=== PATIENT | male | born 1960 | race Caucasian/White ===

== ENCOUNTER 2020-03-16 17:22 | Inpatient (IN) | payer OTHER ==
--- NOTE | 2020-03-16 18:23 | RAD ---
EXAM DESCRIPTION: Chest,1 View CLINICAL HISTORY: covid COMPARISON: None. FINDINGS: There are bilateral poorly defined consolidations. Cardiac silhouette is within normal limits. No pneumothorax. Lung volumes are low. IMPRESSION: Poorly defined consolidations can be seen in viral inflammation. Electronically signed by: Ever Laird 03/16/2020 6:21 PM [facility]
[2020-03-16] MEDS ORDERED: AZITHROMYCIN IV 500 MG in SODIUM CHLORIDE 0.9% 250ML 250 ML IVPB ONE (18:44)
[2020-03-16] MEDS ORDERED: DEXAMETHASONE INJ 4 MG/ML VIAL IV ONE (18:44)
[2020-03-16] MEDS ORDERED: cefTRIAXone SODIUM 1 GM in SODIUM CHL 0.9% 50ML MIN-BAG+ 50 ML IVPB ONE (18:44)
[2020-03-16] MEDS ORDERED: REMDESIVIR 200 MG in SODIUM CHLORIDE 0.9% 250ML 250 ML IVPB ONE (18:44)
--- NOTE | 2020-03-16 19:08 | ED.PDOC ---
History of Present Illness - General Chief Complaint: Respiratory Problem Stated Complaint: weakness, difficulty breathing Time Seen by Provider: 03/16/20 17:28 Source: patient Exam Limitations: no limitations - History of Present Illness Initial Comments: The patient is a 60-year-old male presented emergency room secondary to progressive shortness of breath, diaphoresis and generalized weakness over the last 10 days. He was diagnosed with coronavirus around that time and has undergone 2 rounds of oral azithromycin and 2 rounds of oral steroids. The patient is not in respiratory distress but oxygen saturations hovered between 88 and 92% at rest on room air and brought down to the mid to low 80s with any exertion. He does get significantly short of breath with activity. He reports that he does have a mildly productive cough. No syncope. Questionable near syncope. He is a type II diabetic. Timing/Duration: other - 10 days Severity: moderate Improving Factors: nothing Worsening Factors: nothing Associated Symptoms: cough, diaphoresis, fever/chills, loss of appetite, malaise, shortness of breath Allergies/Adverse Reactions: Allergies NO KNOWN ALLERGY Allergy (Verified 03/16/20 17:59) Home Medications: Ambulatory Orders Empagliflozin-Metformin HCl [Synjardy Xr 25-1000 mg] 1 tablet PO DAILYBK 03/16/20 Lisinopril 20 mg PO DAILY 03/16/20 Review of Systems - Review of Systems Constitutional: States: malaise EENTM: States: no symptoms reported Respiratory: States: cough, short of breath Cardiology: States: no symptoms reported Gastrointestinal/Abdominal: States: no symptoms reported Genitourinary: States: no symptoms reported Musculoskeletal: States: no symptoms reported Skin: States: no symptoms reported Neurological: States: no symptoms reported Endocrine: States: no symptoms reported Hematologic/Lymphatic: States: no symptoms reported All other Systems: No Change from Baseline Past Medical History (General) - Patient Medical History Hx Seizures: No Hx Stroke: No Hx Dementia: No Hx of COPD: No Hx Cardiac Disorders: No Hx Congestive Heart Failure: No Hx Hypertension: Yes Hx Thyroid Disease: No Hx Diabetes: Yes Hx Renal Disease: No Surgical History: other - Social History Hx Tobacco Use: No Family Medical History - Family History Mother Family History: Unknown Physical Exam - Physical Exam General Appearance: Alert, Comfortable, No apparent distress Eye Exam: bilateral normal Ears, Nose, Throat: hearing grossly normal, normal pharynx Neck: non-tender, supple Respiratory: accessory muscle use - Primarily with exertion or just walking, rhonchi Cardiovascular/Chest: normal peripheral pulses, regular rate, rhythm, no edema Peripheral Pulses: radial,right: 2+, radial,left: 2+ Gastrointestinal/Abdominal: non tender, soft Rectal Exam: deferred Back Exam: no CVA tenderness, no vertebral tenderness Extremity: non-tender, normal inspection, no pedal edema, normal capillary refill Neurologic: flour blender II-XII nml as tested, alert, normal mood/affect, oriented x 3 Skin Exam: normal color Comments: Vital Signs - 24 hr 03/16/20 03/16/20 03/16/20 17:28 18:20 18:34 Temperature 96.5 F L 96.9 F L Pulse Rate [ 84 78 79 left brachial] Respiratory 18 20 20 Rate Blood Pressure 114/77 100/66 109/78 [left brachial] O2 Sat by Pulse 93 L 89 L 94 L Oximetry 03/16/20 19:08 Temperature Pulse Rate [ 78 left brachial] Respiratory 20 Rate Blood Pressure 111/85 [left brachial] O2 Sat by Pulse 94 L Oximetry Pulse oximetry ranges from 88 to 93% on room air at rest. Oxygen saturations do drop down below 85% with any exertion. Progress - Progress Progress: 03/16/20 19:10 The patient is a 60-year-old male that is a type II diabetic presenting with worsening symptoms of shortness of breath related to rhinovirus infection. The patient is being started on Rocephin, azithromycin, remdesivir, oxygen, and dexamethasone. He will be admitted for further care as he does dipesh ear to be deteriorating. The patient has failed outpatient treatment with a azithromycin and oral steroid. Admit for continued care. - Results/Orders Results/Orders: 03/16/20 17:28 Telemetry .CONTINUOUS 03/16/20 17:30 EKG STAT 03/16/20 17:50 BLOOD CULTURE Stat 03/16/20 18:44 Azithromycin IV [Zithromax IV] 500 mg Sodium Chloride 0.9% 250Ml [NS 250ml] 250 ml IVPB ONCE Remdesivir 200 mg Sodium Chloride 0.9% 250Ml [NS 250ml] 250 ml IVPB ONCE cefTRIAXone SODIUM [Rocephin] 1 gm Sodium Chl 0.9% 50Ml Min-Bag+ [NS 50ml MINI-BAG+] 50 ml IVPB ONCE Laboratory Results - last 24 hr 03/16/20 03/16/20 03/16/20 17:50 17:50 17:50 WBC 5.0 RBC 5.08 Hgb 17.1 Hct 48.6 MCV 95.8 H MCH 33.6 H MCHC 35.1 RDW 13.4 Plt Count 107 L MPV 10.3 Absolute Neuts (auto) 4.20 Absolute Lymphs (auto) 0.40 L Absolute Monos (auto) 0.40 Absolute Eos (auto) 0.00 Absolute Basos (auto) 0.00 Neutrophils % 84.1 H Lymphocytes % 7.1 L Monocytes % 8.4 Eosinophils % 0.0 L Basophils % 0.4 PT INR PTT (SP) Fibrinogen D-Dimer, Quantitative Sodium 137 Potassium 4.1 Chloride 101 Carbon Dioxide 25 Anion Gap 15.1 BUN 20 H Creatinine 1.07 BUN/Creatinine Ratio 18.7 Random Glucose 178 H Serum Osmolality 280.9 Lactic Acid 1.3 Calcium 8.4 Magnesium 2.1 Ferritin Total Bilirubin 1.1 H AST 47 H ALT 37 Alkaline Phosphatase 45 LD Total Creatine Kinase 295 H* CK-MB (CK-2) 0.8 CK-MB (CK-2) % Not Reportable Troponin I < 0.02 C-Reactive Protein B-Natriuretic Peptide < 15.0 Serum Total Protein 7.4 Albumin 3.8 Globulin 3.6 H Albumin/Globulin Ratio 1.1 Amylase 99 Lipase 72 H 03/16/20 03/16/20 03/16/20 17:50 17:50 17:50 WBC RBC Hgb Hct MCV MCH MCHC RDW Plt Count MPV Absolute Neuts (auto) Absolute Lymphs (auto) Absolute Monos (auto) Absolute Eos (auto) Absolute Basos (auto) Neutrophils % Lymphocytes % Monocytes % Eosinophils % Basophils % PT 10.3 INR 1.04 PTT (SP) 27.7 Fibrinogen 477 H D-Dimer, Quantitative < 131.0 L Sodium Potassium Chloride Carbon Dioxide Anion Gap BUN Creatinine BUN/Creatinine Ratio Random Glucose Serum Osmolality Lactic Acid Calcium Magnesium Ferritin 912.6 H Total Bilirubin AST ALT Alkaline Phosphatase LD Total 284 H Creatine Kinase CK-MB (CK-2) CK-MB (CK-2) % Troponin I C-Reactive Protein 1.9 H B-Natriuretic Peptide Serum Total Protein Albumin Globulin Albumin/Globulin Ratio Amylase Lipase Chest x-ray shows mild scattered infiltrates. Borderline cardiomegaly. EKG shows normal sinus rhythm at 86 bpm. Normal R wave progression. Normal axis. No ST segment or T wave changes indicative of acute ischemia. Normal QT interval. Departure - Departure Clinical Impression: Pneumonia due to 2019 novel coronavirus Departure Forms: ED Discharge - Pt. Copy, Patient Portal Self Enrollment Home Medications: Ambulatory Orders Empagliflozin-Metformin HCl [Synjardy Xr 25-1000 mg] 1 tablet PO DAILYBK 03/16/20 Lisinopril 20 mg PO DAILY 03/16/20 Decision To Admit - Decistion To Admit Decision to Admit Reason: Medical Nature Decision to Admit Date: 03/16/20 Decision to Admit Time: 19:11
--- NOTE | 2020-03-16 20:49 | HP ---
SUPERVISING PHYSICIAN: Alexander Arambula MD CHIEF COMPLAINT: Weakness, difficulty breathing. HISTORY OF PRESENT ILLNESS: Mr. Mullen is a 60 year-old male patient who presented to the Emergency Room last night complaining of worsening shortness of breath an diaphoresis and generalized weakness over the last 10 days. He was diagnosed with coronavirus last Thursday and has had 2 rounds of azithromycin as well as oral steroids. He lives in [place] but has a [facility] [place] at and was at to isolate from his family but while in isolation has developed some shortness of breath. On initial presentation to the Emergency Room, his oxygen saturations were 88% on room air and brought down even further with exertion. Laboratory studies showed he had a white count of 5,000 with a left shift. His chemistries showed normal electrolytes with creatinine of 1.07. Initial C-reactive protein was 1.9, troponin less than 0.02. Lipase was slightly elevated at 32. He had a normal D-dimer. Chest x-ray per radiology interpretation shows poorly defined consolidations bilaterally. The patient is going to be admitted for Covid pneumonitis with desaturations and hypoxia on room air for further evaluation and treatment. PAST MEDICAL HISTORY: 1. Diabetes mellitus type 2 on oral therapy. 2. Hypertension. PAST SURGICAL HISTORY: Hernia repair in 1999 CURRENT MEDICATIONS: 1. Tessalon Perles 200 mg t.i.d. 2. Methylprednisolone 4 mg daily. 3. Finasteride 5 mg daily. 4. Synjardy 1 tablet daily. 5. Azithromycin 500 mg daily. 6. Tamsulosin 0.4 mg daily. 7. Lisinopril. ALLERGIES: No known drug allergies. FAMILY HISTORY: Father at age 75 due to esophageal and lymphoma cancer, he had diabetes as well. His mother is 83 and currently healthy. He has 2 siblings, sister and brother who are healthy. 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 He is . He doesn't have a history of smoking or utilizing any illicit drugs or alcohol. REVIEW OF SYSTEMS: CONSTITUTIONAL: Positive for general malaise, denies fevers, chills. HEENT: Denies headaches. vision changes, sore throat. nasal congestion, earaches. CHEST: As noted in history of present illness, a cough and shortness of breath. HEART: Denies chest pain, palpitations, tachycardia or syncopal episodes. ABDOMEN: Denies nausea, vomiting, diarrhea or constipation, abdominal pain. GENITOURINARY: Denies dysuria, hematuria or polyuria. MUSCULOSKELETAL: Denies arthralgias, joint swelling. SKIN: Denies lesions, rashes, moles or unexplained changes. NEUROLOGIC: Denies ataxia, seizures, weakness, paresthesias. HEMATOLOGICAL: Denies unexplained bleeding, easy bruising or transfusion reactions. PHYSICAL EXAMINATION: VITAL SIGNS: Initially in the Emergency Room showed temperature 96.5, pulse 84, blood pressure 114/77, respirations 18, oxygen saturation 89% on room air at rest, going up to 94% on nasal cannula at 2 liters. GENERAL: The patient looks to be resting comfortably, in no acute distress. He is alert. HEENT: Tympanic membranes clear bilaterally. Oropharynx pink and moist without any lesions. NECK: Supple, non-tender, full range of motion, no jugular venous distention. CHEST: Lung sounds were fairly clear, just diminished toward the bases with no obvious rhonchi, rales, or wheezes. CARDIOVASCULAR: Regular rate and rhythm without appreciable murmurs, rubs, or gallops. ABDOMEN: Soft, non-tender positive bowel sounds. EXTREMITIES: No cyanosis, clubbing, or edema. BACK: Without CVA or vertebral tenderness. NEUROLOGIC: Cranial nerves II through XII are grossly intact. Extraocular movements were within normal limits. He was alert and oriented x 3. SKIN: Warm, pink and dry. RECTAL: Deferred. LABORATORY: White count 5,000, hemoglobin 17.1, hematocrit 48.6, platelet count 107,000, differential shows a left shift. Coagulation studies showed normal D- dimer, normal PT/PTT. Fibrinogen slightly elevated at 477. Chemistries showed normal electrolytes with creatinine 1.07, normal magnesium, normal calcium. Lactic acid normal at 1.3. Ferritin elevated at 912, bilirubin slightly elevated at 1.1, AST 47, ALT normal. CK 295, troponin less than 0.02. BNP less than 15. C-reactive protein 1.9, lipase 72. MICROBIOLOGY: Blood cultures were collected and pending. RADIOLOGY: Chest x-ray shows bilateral consolidations. ASSESSMENT: 1. Covid pneumonitis with hypoxia. 2. Diabetes mellitus type 2. 3. Hypertension. PLAN: Mr. Jacob is going to be admitted for treatment of Covid pneumonitis given his room air hypoxic. Will start him on Remdesivir, Decadron, Rocephin, azithromycin, Align and Protonix and Lovenox. Will have aggressive pulmonary hygiene with albuterol treatments if needed by handheld inhaler. He will be on insulin sliding scale per protocol. I would anticipate his length of stay to be 2 or 3 days. Hopefully, will be able to discharge by Thursday. Until then, we will continue to monitor and treat as needed. [facility][id number] [facility]
[2020-03-16] MEDS ORDERED: GLUCAGON INJ 1 MG VIAL SUBCU PRN (21:49)
[2020-03-16] MEDS ORDERED: DEXTROSE 50% 25 GM/50 ML SYG IV PRN (21:49)
[2020-03-16] MEDS ORDERED: ACETAMINOPHEN 325 MG TAB PO PRN (21:49)
[2020-03-16] MEDS ORDERED: SODIUM CHLORIDE 0.9% (FLUSH) 10 ML SYG IV PRN (21:49)
[2020-03-16] MEDS ORDERED: ONDANSETRON INJ 4 MG/2 ML VIAL IV PRN (21:49)
[2020-03-16] MEDS ORDERED: MAGNESIUM HYDROXIDE 30 ML UD PO PRN (21:49)
[2020-03-16] MEDS ORDERED: PROMETHAZINE W/CODEINE SYR 5 ML UD PO PRN (21:57)
[2020-03-16] MEDS ORDERED: IV SET AND CAP CHANGE INJ INJ SCH (22:00)
[2020-03-16] MEDS ORDERED: BENZONATATE PERLES 100 MG CAP ONE (22:37)
[2020-03-16] MEDS: BENZONATATE 200 MG PO SCH (22:38)
[2020-03-16] MEDS: TEMAZEPAM 15 MG CAP PO PRN (22:56)
[2020-03-17] MEDS: PANTOPRAZOLE SODIUM IV 40 MG VIAL IV SCH (06:15)
[2020-03-17] MEDS: INSULIN LISPRO 100 UNITS/ML PEN SUBCU SCH ×4 (08:12→20:56)
[2020-03-17] MEDS ORDERED: BENZONATATE PERLES 100 MG CAP ONE ×3 (08:49→18:50)
[2020-03-17] MEDS ORDERED: LISINOPRIL 10 MG TAB ONE (08:50)
[2020-03-17] MEDS ORDERED: SODIUM CHLORIDE 0.9% 250ML 250 ML ONE ×2 (08:50→11:34)
[2020-03-17] MEDS ORDERED: cefTRIAXone SODIUM 1 GM VIAL ONE (08:50)
[2020-03-17] MEDS ORDERED: AZITHROMYCIN IV 500 MG VIAL IVPB ONE (08:50)
[2020-03-17] MEDS ORDERED: SODIUM CHL 0.9% 50ML MIN-BAG+ 50 ML IVPB ONE (08:50)
[2020-03-17] MEDS: NON-FORMULARY MEDICATION 1 EA MIS (Lisinopril [Lisinopril] 20 MG) PO SCH (09:12)
[2020-03-17] MEDS: BIFIDOBACTERIUM INFANTIS 4 MG CAP PO SCH (09:12)
[2020-03-17] MEDS: DEXAMETHASONE INJ 10 MG/ML VIAL IV SCH (09:12)
[2020-03-17] MEDS: FINASTERIDE 5 MG TAB PO SCH (09:12)
[2020-03-17] MEDS: BENZONATATE 200 MG PO SCH ×3 (09:12→20:48)
[2020-03-17] MEDS: guaiFENesin ER TAB 600 MG TAB PO SCH ×2 (09:12→20:48)
[2020-03-17] MEDS: cefTRIAXone SODIUM 1 GM in SODIUM CHL 0.9% 50ML MIN-BAG+ 50 ML IVPB SCH (09:13)
[2020-03-17] MEDS: AZITHROMYCIN IV 500 MG in SODIUM CHLORIDE 0.9% 250ML 250 ML IVPB SCH (09:13)
[2020-03-17] MEDS: TAMSULOSIN 0.4 MG CAP PO SCH (09:13)
--- NOTE | 2020-03-17 09:13 | RAD ---
: 1960. Technique: Portable AP upright chest x-ray. Comparison: March 16, 2020. Clinical history: COVID PNA. Heart size: Heart size is moderately enlarged. There is mild vascular congestion. Lungs: Patchy linear densities in the mid and lower lung kwong. Consistent with atelectasis or interstitial pneumonia. No new airspace consolidation otherwise. Shallow inspiration. Pleura: No pleural effusion. No pneumothorax. Mediastinum and mirlande: Unremarkable. Skeletal: Unremarkable. Support tubings: None. Impression: 1. Mild interstitial pneumonia-atelectasis. 2. Cardiomegaly and mild vascular congestion Electronically signed by: Abhilash Meyers MD 03/17/2020 9:11 AM [employer]
[2020-03-17] MEDS: ALBUTEROL INHALER 64 PUFF/8GM INH SCH ×5 (09:30→20:50)
[2020-03-17] MEDS ORDERED: REMDESIVIR IV 100 MG VIAL ONE (11:34)
[2020-03-17] MEDS: REMDESIVIR 100 MG in SODIUM CHLORIDE 0.9% 250ML 250 ML IVPB SCH (12:04)
--- NOTE | 2020-03-17 14:41 | PN ---
SUPERVISING PHYSICIAN: Alexander Arambula MD DATE: 03/17/20 SUBJECTIVE: The patient is feeling a little bit better today. Oxygen saturations are showing 95% at rest on 3 liter nasal cannula. He has had no nausea or vomiting or any chest pain. OBJECTIVE: VITAL SIGNS: Temperature 98, pulse 69, blood pressure 118/79, respirations 18, oxygen saturation 95% on 3 liter nasal cannula. GENERAL: The patient appears to be resting comfortably and in no acute distress. CHEST: Clear to auscultation, a little diminished toward the bases. HEART: Regular rate and rhythm. ABDOMEN: Soft, non-tender, positive bowel sounds. EXTREMITIES: Without edema. NEUROLOGIC: He is alert and oriented x 3. LABORATORY: White count 4,300 with hemoglobin 16.6, hematocrit 47.9. RBC indices do show a microcytosis. Platelet count at 101,000, differential shows reduced leukocyte count but no left shift obvious today. D-dimer is still less than 131. Chemistries show normal electrolytes. Creatinine 1.09. Blood sugars range between 111 and 178. Calcium 8.2, magnesium 2.5, Liver functions now showing to be within normal limits. LDH is down to 226, C-reactive protein up a little bit to 2.6. MICROBIOLOGY: Blood cultures remain negative. RADIOLOGY: Repeat chest x-ray this morning per radiology interpretation shows mild interstitial pneumonia, atelectasis, cardiomegaly and mild vascular congestion. ASSESSMENT: 1. Covid pneumonitis with hypoxia. 2. Diabetes mellitus type 2. 3. Hypertension. PLAN: Will continue with current plan of care with Remdesivir, azithromycin, Rocephin, Decadron, Protonix, Align. Will work to get him on room air and anticipate hopefully he will discharge Until we can transition patient to outpatient management tomorrow or Thursday, we will continue to monitor and treat as needed. #[id number] [facility]
[2020-03-17] MEDS ORDERED: PROMETHAZINE W/CODEINE SYR 5 ML UD PO ONE (19:19)
[2020-03-17] MEDS ORDERED: TEMAZEPAM 15 MG CAP ONE (19:56)
[2020-03-17] MEDS: TEMAZEPAM 15 MG CAP PO PRN (20:48)
[2020-03-17] MEDS: ENOXAPARIN SODIUM 40 MG/0.4 ML SYG SUBCU SCH (20:49)
[2020-03-17] MEDS ORDERED: ALBUTEROL INHALER 64 PUFF/8GM INH PRN (21:54)
[2020-03-18] MEDS ORDERED: PANTOPRAZOLE SODIUM IV 40 MG VIAL ONE ×2 (04:39→19:08)
[2020-03-18] MEDS: PANTOPRAZOLE SODIUM IV 40 MG VIAL IV SCH (06:06)
[2020-03-18] MEDS ORDERED: DEXAMETHASONE INJ 10 MG/ML VIAL ONE (09:19)
[2020-03-18] MEDS ORDERED: FINASTERIDE 5 MG TAB ONE (09:19)
[2020-03-18] MEDS ORDERED: BIFIDOBACTERIUM INFANTIS 4 MG CAP ONE (09:19)
[2020-03-18] MEDS ORDERED: BENZONATATE PERLES 100 MG CAP ONE ×2 (09:19→19:07)
[2020-03-18] MEDS ORDERED: guaiFENesin ER TAB 600 MG TAB ONE ×2 (09:19→19:08)
[2020-03-18] MEDS ORDERED: cefTRIAXone SODIUM 1 GM VIAL ONE (09:20)
[2020-03-18] MEDS ORDERED: LISINOPRIL 10 MG TAB ONE (09:20)
[2020-03-18] MEDS ORDERED: TAMSULOSIN 0.4 MG CAP ONE (09:20)
[2020-03-18] MEDS ORDERED: AZITHROMYCIN IV 500 MG VIAL IVPB ONE (09:20)
[2020-03-18] MEDS ORDERED: REMDESIVIR IV 100 MG VIAL ONE (09:20)
[2020-03-18] MEDS ORDERED: SODIUM CHLORIDE 0.9% 250ML 250 ML ONE (09:20)
[2020-03-18] MEDS ORDERED: SODIUM CHL 0.9% 50ML MIN-BAG+ 50 ML IVPB ONE (09:21)
[2020-03-18] MEDS: BIFIDOBACTERIUM INFANTIS 4 MG CAP PO SCH (10:14)
[2020-03-18] MEDS: BENZONATATE 200 MG PO SCH ×3 (10:20→20:07)
[2020-03-18] MEDS: guaiFENesin ER TAB 600 MG TAB PO SCH ×2 (10:20→20:08)
[2020-03-18] MEDS: INSULIN LISPRO 100 UNITS/ML PEN SUBCU SCH ×4 (10:20→20:26)
[2020-03-18] MEDS: TAMSULOSIN 0.4 MG CAP PO SCH (10:20)
[2020-03-18] MEDS: NON-FORMULARY MEDICATION 1 EA MIS (Lisinopril [Lisinopril] 20 MG) PO SCH (10:20)
[2020-03-18] MEDS: DEXAMETHASONE INJ 10 MG/ML VIAL IV SCH (10:20)
[2020-03-18] MEDS: FINASTERIDE 5 MG TAB PO SCH (10:20)
[2020-03-18] MEDS: cefTRIAXone SODIUM 1 GM in SODIUM CHL 0.9% 50ML MIN-BAG+ 50 ML IVPB SCH (10:21)
[2020-03-18] MEDS: AZITHROMYCIN IV 500 MG in SODIUM CHLORIDE 0.9% 250ML 250 ML IVPB SCH (10:21)
[2020-03-18] MEDS: REMDESIVIR 100 MG in SODIUM CHLORIDE 0.9% 250ML 250 ML IVPB SCH (12:38)
[2020-03-18] MEDS: ALBUTEROL INHALER 64 PUFF/8GM INH SCH ×3 (13:15→18:00)
--- NOTE | 2020-03-18 13:36 | PN ---
SUPERVISING PHYSICIAN: Alexander Arambula MD DATE: 03/18/20 SUBJECTIVE: The patient is still requiring oxygen. He desats pretty quickly on room air. He is not showing any distress, he's not had any chest pain but goes down into the low 80s with any ambulation with any effort off any kind of supplementation. OBJECTIVE: VITAL SIGNS: Temperature 97.6, pulse 69, blood pressure 120/72, respirations 18, oxygen saturation 93% on 5 liter nasal cannula. GENERAL: The patient appears to be resting comfortably and in no acute distress. He is alert and oriented x3. CHEST: Fairly clear, just diminished toward the bases. HEART: Regular rate and rhythm. ABDOMEN: Soft, non-tender, positive bowel sounds. EXTREMITIES: Without edema. NEUROLOGIC: He is alert and oriented x 3. LABORATORY: White count 6,400 with hemoglobin 15.5, hematocrit 44.5. Platelet count 105,000, differential shows to be without a left shift. D-dimer is less than 131. Chemistries show normal electrolytes. Creatinine 0.99. Liver functions within normal limits. Magnesium normal, calcium 8.3. C-reactive protein down to 1.3 from 2.6. MICROBIOLOGY: Blood cultures remain negative at 24 hours. RADIOLOGY: No repeat chest x-ray today. . ASSESSMENT: 1. Covid pneumonitis with hypoxia. 2. Diabetes mellitus type 2. 3. Hypertension. PLAN: Will continue with current plan of care at this point with Remdesivir, azithromycin, Rocephin, Decadron, Protonix, Align. I was hoping to discharge him today but again, he is desatting initially on room air with ambulation. I do anticipate if we get him oxygen tomorrow he can discharge. He does live in [place] and is planning on going home to [place] tomorrow but I am not sure he is safe enough to discharge without any supplemental Oxycodone. Until then, we will continue to monitor and treat as needed.. #[id number] [facility]
[2020-03-18] MEDS ORDERED: INSULIN, REG.(HUMAN) 100 U/ML VIAL ONE (17:30)
[2020-03-18] MEDS ORDERED: TEMAZEPAM 15 MG CAP ONE (19:08)
[2020-03-18] MEDS ORDERED: ENOXAPARIN SODIUM 40 MG/0.4 ML SYG SUBCU ONE (19:08)
[2020-03-18] MEDS: TEMAZEPAM 15 MG CAP PO PRN (20:07)
[2020-03-18] MEDS: ENOXAPARIN SODIUM 40 MG/0.4 ML SYG SUBCU SCH (20:08)
[2020-03-19] MEDS: PANTOPRAZOLE SODIUM IV 40 MG VIAL IV SCH (06:31)
--- NOTE | 2020-03-19 07:11 | RAD ---
EXAM: Chest,1 View HISTORY: COVID PNA COMPARISON: Chest 1 View AP 03/17/2020 TECHNIQUE: Chest 1 View AP FINDINGS: Patient's neck partially appears bilateral medial apices. Moderate decreased inspiration (decreased lung volumes) makes evaluation more difficult and may accentuate heart size and pulmonary vascularity. Cardiac silhouette stable. No significant change in moderate hazy and interstitial bilateral lung opacities. Minimal left pleural effusion not ruled out. No pneumothorax. IMPRESSION: No significant change in moderate hazy and interstitial bilateral lung opacities. Electronically signed by: Sarbjit Weiss MD 03/19/2020 7:09 AM [facility]
[2020-03-19] MEDS: ALBUTEROL INHALER 64 PUFF/8GM INH SCH ×2 (08:11→13:07)
[2020-03-19] MEDS ORDERED: BIFIDOBACTERIUM INFANTIS 4 MG CAP ONE (08:18)
[2020-03-19] MEDS ORDERED: guaiFENesin ER TAB 600 MG TAB ONE (08:18)
[2020-03-19] MEDS ORDERED: DEXAMETHASONE INJ 10 MG/ML VIAL ONE (08:18)
[2020-03-19] MEDS ORDERED: BENZONATATE PERLES 100 MG CAP ONE (08:18)
[2020-03-19] MEDS ORDERED: FINASTERIDE 5 MG TAB ONE (08:18)
[2020-03-19] MEDS ORDERED: cefTRIAXone SODIUM 1 GM VIAL ONE (08:19)
[2020-03-19] MEDS ORDERED: LISINOPRIL 10 MG TAB ONE (08:19)
[2020-03-19] MEDS ORDERED: SODIUM CHL 0.9% 50ML MIN-BAG+ 50 ML IVPB ONE (08:19)
[2020-03-19] MEDS ORDERED: REMDESIVIR IV 100 MG VIAL ONE (08:19)
[2020-03-19] MEDS ORDERED: SODIUM CHLORIDE 0.9% 250ML 250 ML ONE ×2 (08:19→08:32)
[2020-03-19] MEDS ORDERED: AZITHROMYCIN IV 500 MG VIAL IVPB ONE (08:32)
[2020-03-19] MEDS ORDERED: TAMSULOSIN 0.4 MG CAP ONE (08:32)
[2020-03-19] MEDS ORDERED: LISINOPRIL 10 MG TAB PO SCH (09:00)
[2020-03-19] MEDS ORDERED: BENZONATATE PERLES 100 MG CAP PO SCH (09:00)
[2020-03-19] MEDS: INSULIN LISPRO 100 UNITS/ML PEN SUBCU SCH ×2 (09:50→14:11)
[2020-03-19] MEDS: FINASTERIDE 5 MG TAB PO SCH (10:11)
[2020-03-19] MEDS: TAMSULOSIN 0.4 MG CAP PO SCH (10:11)
[2020-03-19] MEDS: BIFIDOBACTERIUM INFANTIS 4 MG CAP PO SCH (10:11)
[2020-03-19] MEDS: guaiFENesin ER TAB 600 MG TAB PO SCH (10:11)
[2020-03-19] MEDS: cefTRIAXone SODIUM 1 GM in SODIUM CHL 0.9% 50ML MIN-BAG+ 50 ML IVPB SCH (10:12)
[2020-03-19] MEDS: AZITHROMYCIN IV 500 MG in SODIUM CHLORIDE 0.9% 250ML 250 ML IVPB SCH (10:12)
[2020-03-19] MEDS: DEXAMETHASONE INJ 10 MG/ML VIAL IV SCH (10:12)
[2020-03-19] MEDS ORDERED: REMDESIVIR 100 MG in SODIUM CHLORIDE 0.9% 250ML 250 ML IVPB SCH (12:00)
[2020-03-19 14:02] VITALS: BP 116/74; TEMP 97.8; O2SAT 94
[2020-03-20] MEDS ORDERED: PANTOPRAZOLE SODIUM TAB 40 MG PO SCH (06:30)
--- NOTE | 2020-04-02 09:57 | DS ---
SUPERVISING PHYSICIAN: Jan Huston MD ADMISSION DIAGNOSIS: 1. COVID pneumonitis with hypoxia. 2. Diabetes mellitus, type 2. 3. Hypertension. DISCHARGE DIAGNOSIS: 1. COVID pneumonitis with hypoxia. 2. Diabetes mellitus, type 2. 3. Hypertension. REASON FOR HOSPITALIZATION: Mr. Jacob is a 60 year-old male patient who presented to the Emergency Room last night complaining of worsening shortness of breath an diaphoresis and generalized weakness over the last 10 days. He was diagnosed with coronavirus last Thursday and has had 2 rounds of azithromycin as well as oral steroids. He lives in [place] but has a [place] at and was at to isolate from his family but while in isolation has developed some shortness of breath. On initial presentation to the Emergency Room, his oxygen saturations were 88% on room air and brought down even further with exertion. Laboratory studies showed he had a white count of 5,000 with a left shift. His chemistries showed normal electrolytes with creatinine of 1.07. Initial C-reactive protein was 1.9, troponin less than 0.02. Lipase was slightly elevated at 32. He had a normal D-dimer. Chest x-ray per radiology interpretation shows poorly defined consolidations bilaterally. The patient is going to be admitted for COVID pneumonitis with desaturations and hypoxia on room air for further evaluation and treatment. LABORATORY: White count on discharge was 6,500, hemoglobin 15.4, hematocrit 44.3, platelet count 109,00. Differential showed a slight left shift. Coagulation studies showed D-dimer less than 131. Chemistries on discharge showed normal electrolytes. Magnesium 2.2, calcium 8.2. HOSPITAL COURSE: Mr. Jacob was admitted on 03/16/20 for treatment of COVID pneumonitis with hypoxia. He was started on remodeled, Decadron, Rocephin, azithromycin, Align, Protonix and Lovenox. He had aggressive pulmonary hygiene while in the hospital on breathing treatments. He did very well with his course of treatment and on day of discharge, he was showing saturation of 94% on 3 liters nasal cannula and arrangements were made to have oxygen on discharge. He was showing good response to treatment and clinically stable. PLAN: Mr. Jacob was discharged on 03/19/20 with instructions to followup with his primary care physician in [place]. He was to resume his usual diet. He was to increase his activity as tolerated. He was to wear oxygen as directed and arrangements were made on discharge. He was given warnings to return to the Emergency Room should he have any worsening of his symptoms. MEDICATIONS PRESCRIBED ON DISCHARGE: 1. Align 4 mg daily for 30 days. 2. Decadron 6 mg daily for 7 days. 3. Guaifenesin 600 mg twice daily for 14 days. 4. Cefdinir 300 mg twice daily for 7 days. 5. Tessalon Perles 100 mg 3 times a day as needed for cough, #14, no refills. 6. Albuterol inhaler 2 puffs as needed for shortness of breath, no refills. 7. Oxygen to maintain O2 saturations greater than 92%. DISPOSITION: The patient was discharged home. CONDITION ON DISCHARGE: Stable and improving. #[id number] [facility]
== END 2020-03-19 16:00 | disposition home or self-care (01) | DRG 177 ==
LOC: ER 17:22 → MS 20:48 → OBSVTOIN 20:48
PROVIDERS: ADMIT Nurse Practitioner Family; ATTEND Nurse Practitioner Family
PROC: XW033E5 Introduction of Remdesivir Anti-infective into Peripheral Vein, Percutaneous Approach, New Technology Group 5 (ICD-10-PCS; principal; 2020-03-16)
DX: U07.1 COVID-19 (principal); J12.89 Other viral pneumonia; R09.02 Hypoxemia; E11.9 Type 2 diabetes mellitus without complications; I10 Essential (primary) hypertension; Z79.84 Long term (current) use of oral hypoglycemic drugs; Z79.899 Other long term (current) drug therapy